=== PATIENT | female | born 2000 | race Caucasian/White ===

== ENCOUNTER 2021-08-02 22:48 | Outpatient (REF) | payer OTHER, SELFPAY ==
[2021-08-02 23:14] LABS: COVID-19 Test Negative (Negative)
[2021-08-02 23:23] LABS: Influenza A Negative (Negative); Influenza B2 Negative (Negative)
== END 2021-08-02 22:49 | disposition home or self-care (01) ==
LOC: HO.LAB 22:48
PROVIDERS: Visit Provider Internal Medicine
DX: Z20.822 Contact with and (suspected) exposure to COVID-19 (principal)
CPT/HCPCS: 87502; 87635

== ENCOUNTER 2022-03-19 18:15 | Outpatient (REF) | payer OTHER, SELFPAY ==
[2022-03-19 19:11] LABS: Influenza A PCR NEGATIVE (Negative); Influenza B PCR NEGATIVE (Negative); Resp Syncy Virus RNA Qual PCR NEGATIVE (Negative); SARS COV2 PCR INHOUSE POSITIVE (Negative)
== END 2022-03-19 18:16 | disposition home or self-care (01) ==
LOC: HO.LAB 18:15
PROVIDERS: Physician Assistant Medical; Visit Provider Internal Medicine
DX: Z20.822 Contact with and (suspected) exposure to COVID-19 (principal)
CPT/HCPCS: 0241U

== ENCOUNTER 2022-09-15 17:34 | Emergency (ER) | payer OTHER, MEDICAID, SELFPAY ==
--- NOTE | ~2022-09-15 | US_ITS ---
EXAMINATION: US THYROID CLINICAL INFORMATION: Left anterior neck pain and swelling. COMPARISON: None available. TECHNIQUE: Linear transducer grayscale and color Doppler examination with attention to the region of the thyroid. FINDINGS: SIZE: Measurements of the thyroid lobes and nodules are given in sagittal, anteroposterior and transverse dimensions respectively. Right Thyroid Lobe: 4.8 x 1.1 x 1.6 cm, volume 4.4 mL. Parenchyma: The gland echotexture is homogeneous. Thyroid vascularity is normal. Left Thyroid Lobe: 4.5 x 1.7 x 1.8 cm, volume 6.8 mL. Parenchyma: The gland echotexture is homogeneous. Thyroid vascularity is normal. Isthmus: 0.2 cm in maximum AP dimension. Estimated total number of nodules greater than or equal to 1 cm: 0. Computer Systems Software Architect nodules are described as follows: 1. Location: Left upper pole. Size: 0.9 x 0.6 x 0.6 cm, volume 0.2 mL. Nodule characteristics: Composition: Mixed cystic and solid (1). Echogenicity: Very hypoechoic (3). Shape: Not taller than wide (0). Margins: Lobulated (2). Echogenic Foci: None (0). ACR TI-RADS total points: 6 ACR TI-RADS category: 4 NODES: Left cervical lymph node measures 1.8 x 0.5 x 1.3 cm. US/US thyroid IMPRESSION: No further routine follow-up is needed. ACR TI-RADS RECOMMENDATION REFERENCE: Ultrasound-guided fine-needle aspiration, followup ultrasound, no further follow up. * TR1 (0 point) and TR2 (2 points): No FNA or follow up. * TR3 (3 points): FNA if more than or equal to 2.5 cm in maximum dimension, followup ultrasound in 1, 3 and 5 years if 1.5 to 2.4 cm in maximum dimension. * TR4 (4-6 points): FNA if more than or equal to 1.5 cm in maximum dimension, followup ultrasound in 1, 2, 3 and 5 years if 1 to 1.4 cm in maximum dimension. * TR5 (more than or equal to 7 points): FNA if more than or equal to 1 cm in maximum dimension, followup ultrasound every year for 5 years if 0.5 to 0.9 cm in maximum dimension. * TR3, TR4 or TR5 nodules that are below the size threshold for followup receive no follow up.
[2022-09-15 17:41] VITALS: BP 137/87; PULSE 91; RESP 18; TEMP 36.2; O2SAT 100; BMI 24.6
--- NOTE | 2022-09-15 17:51 | ED_ITS ---
HPI - General Adult General Chief complaint: General Medical Stated complaint: Neck pain Time Seen by Provider: 09/15/22 20:15 Source: patient, RN notes reviewed and old records reviewed Mode of arrival: ambulatory Limitations: no limitations History of Present Illness HPI narrative: 21-year-old female presents for evaluation of left-sided neck pain. Patient reports that 1/2 weeks ago she had ?a cold. ? She also a sore throat. She states that the symptoms improved over the last 3 days she has had worsening left-sided neck pain The pain radiates 3 ear pain Pain is worse with swallowing and worse with turning her head No current fevers or chills, no cough or shortness of breath The patient is concerned about her thyroid as her mother has thyroiditis Related Data Allergies Allergy/AdvReac Type Severity Reaction Status Date / Time No Known Allergies Allergy Verified 09/15/22 17:44 Review of Systems Constitutional: Constitutional: Denies chills and Denies fever(s) ENT: Denies neck mass, Reports neck pain, Reports sore throat and Denies throat swelling Cardiovascular: Cardiovascular: Denies dyspnea Respiratory: Respiratory: Denies cough and Denies dyspnea Gastrointestinal: Gastrointestinal: Denies abdominal pain, Denies nausea and Denies vomiting Musculoskeletal: Musculoskeletal: Reports neck pain Allergic/Immunologic: Allergic/Immunologic: Denies throat swelling PMFSH Social History Social History Advance Directives: No Advance Directives Information Provided: No Physical Exam ED Vital Signs: Vital Signs - 24 hr 09/15/22 17:41 Temperature 97.2 F Pulse Rate 91 Respiratory Rate 18 Blood Pressure 137/87 Pulse Oximetry 100 Oxygen Delivery Method Room Air BMI result Body Mass Index 24.6 Const General: healthy appearing, comfortable, no acute distress, alert and awake Nutritional Appearance: well nourished Orientation/consciousness: patient oriented x3 HENMT Head: Yes normocephalic and Yes atraumatic Throat: Yes posterior oropharynx normal Eyes Eyelids: Yes eyelids normal Conjunctivae: conjunctivae normal Sclerae: sclerae normal Corneas: corneas normal Pupils: Equal, round and reactive pupils present EOM: EOMs intact bilaterally Neck Other: No obvious anterior neck swelling, no palpable masses. No obvious abnormalities on palpation of thyroid Neck: Yes full ROM Resp Effort & Inspection: normal respiratory effort, able to speak in complete sentences and not labored Skin General skin exam: no rashes or lesions noted and elasticity normal Neuro General: patient oriented x3 Cranial nerves: Yes Equal, round and reactive pupils present and Yes Bilaterally intact EOM present Cognition (Neuro): normal cognition Extrem Other: Moving all extremities well without any obvious deformities Course Course Course Narrative: 21-year-old female presents for evaluation of left-sided neck pain. She reports that she had a cold about a week and a half ago. She reports getting better and then over last 3 days has had pain in the left anterior neck. The pain is worse with palpation, swelling, movement. She is concerned about her thyroiditis her mother has thyroid disease. Plan for labs including Monospot and TSH with reflex T4 as well as ultrasound soft tissue neck on the left Medical Decision Making Medical Decision Making MDM Narrative: Ultrasound of the thyroid does not show any evidence of abnormalities. There a 1.8 cm left anterior cervical chain lymph node present which is likely related t o the patient's viral illness from last week. No significant lab abnormalities including thyroid. These results were discussed with the patient. She will follow-up with PCP Differential Diagnosis Cervical lymphadenopathy Thyroiditis Pharyngitis Strep throat [place] Lab Data 09/15/22 17:52 09/15/22 17:52 Labs: Lab Results 09/15/22 09/15/22 09/15/22 Range/Units 17:52 17:52 17:52 WBC 11.6 H (4.8-10.8) X10*3/uL RBC 4.47 (4.20-5.50) X10*6/uL Hgb 13.0 (12.0-16.0) g/dl Hct 38.4 (37.0-47.0) % MCV 85.9 (80.0-98.0) fL MCH 29.1 (27.0-33.0) pg MCHC 33.9 (31.0-35.0) g/dl RDW 11.9 (11.0-16.0) % Plt Count 339 (160-400) X10*3/uL MPV 9.9 (9.4-12.3) fL Immature Gran % (Auto) 0.2 (0.0-0.4) % Neut % (Auto) 63.4 (45-73) % Lymph % (Auto) 27.9 (20-40) % [place] % (Auto) 7.1 (2-11) % Eos % (Auto) 1.0 (0-4) % Baso % (Auto) 0.4 (0-2) % Lymph # (Auto) 3.3 (1.2-4.9) X10*3/uL [place] # (Auto) 0.8 (0.1-1.2) X10*3/uL Eos # (Auto) 0.1 (0.0-0.4) X10*3/uL Baso # (Auto) 0.1 (0.0-0.2) X10*3/uL Abs Immat Gran (auto) 0.02 (0.00-0.03) X10*3/uL Absolute Neuts (auto) 7.4 (2.0-8.3) x10*3/uL Absolute Nucleated RBC 0.000 (0.0-0.012) X10*3/uL Nucleated RBC % (auto) 0.0 (0.0-0.2) /100WBC Sodium 140 (135-145) mmol/L Potassium 3.5 (3.3-5.1) mmol/L Chloride 105 (96-108) mmol/L Carbon Dioxide 25 (22-29) mmol/L Anion Gap 14 (12-20) BUN 12 (9-16) mg/dL Creatinine 0.68 (0.5-1.4) mg/dL Estim Creat Clear Calc 127.2 Estimated GFR > 60 Random Glucose 91 (60-115) mg/dL Calcium 10.0 (8.4-10.2) mg/dL TSH 1.71 (0.32-4.0) uIU/mL Monoscreen Negative (Negative) S. pyogenes GrpA CRISTIAN (Negative) 09/15/22 Range/Units 17:52 WBC (4.8-10.8) X10*3/uL RBC (4.20-5.50) X10*6/uL Hgb (12.0-16.0) g/dl Hct (37.0-47.0) % MCV (80.0-98.0) fL MCH (27.0-33.0) pg MCHC (31.0-35.0) g/dl RDW (11.0-16.0) % Plt Count (160-400) X10*3/uL MPV (9.4-12.3) fL Immature Gran % (Auto) (0.0-0.4) % Neut % (Auto) (45-73) % Lymph % (Auto) (20-40) % [place] % (Auto) (2-11) % Eos % (Auto) (0-4) % Baso % (Auto) (0-2) % Lymph # (Auto) (1.2-4.9) X10*3/uL [place] # (Auto) (0.1-1.2) X10*3/uL Eos # (Auto) (0.0-0.4) X10*3/uL Baso # (Auto) (0.0-0.2) X10*3/uL Abs Immat Gran (auto) (0.00-0.03) X10*3/uL Absolute Neuts (auto) (2.0-8.3) x10*3/uL Absolute Nucleated RBC (0.0-0.012) X10*3/uL Nucleated RBC % (auto) (0.0-0.2) /100WBC Sodium (135-145) mmol/L Potassium (3.3-5.1) mmol/L Chloride (96-108) mmol/L Carbon Dioxide (22-29) mmol/L Anion Gap (12-20) BUN (9-16) mg/dL Creatinine (0.5-1.4) mg/dL Estim Creat Clear Calc Estimated GFR Random Glucose (60-115) mg/dL Calcium (8.4-10.2) mg/dL TSH (0.32-4.0) uIU/mL Monoscreen (Negative) S. pyogenes GrpA CRISTIAN Negative (Negative) Discharge Plan Discharge Clinical Impression: Lymphadenopathy of left cervical region Patient Disposition: Home, Self-Care Instructions: Lymphadenopathy (ED) Additional Instructions: Your blood work did not show any concerning abnormalities. This included your thyroid studies You tested negative for strep throat and mononucleosis Your ultrasound showed a normal thyroid but did show a swollen lymph node on the left side of the neck This is likely from the viral illness you had 1/2 weeks ago It should go away on its own home but you may use ibuprofen or Tylenol for pain
[2022-09-15 17:56] LABS: MANUAL DIFF FLAG NO
[2022-09-15 18:02] LABS: Basophils Absolute Auto 0.1 X10*3/uL (0.0-0.2); Basophils Percent Auto 0.4 % (0-2); Eosinophils Absolute Auto 0.1 X10*3/uL (0.0-0.4); Hematocrit 38.4 % (37.0-47.0); Imm Gran Abs Auto 0.02 X10*3/uL (0.00-0.03); Imm Gran Pct Auto 0.2 % (0.0-0.4); Lymphocytes Absolute Auto 3.3 X10*3/uL (1.2-4.9); Lymphocytes Percent Auto 27.9 % (20-40); Mean Corpuscular HGB Conc 33.9 g/dl (31.0-35.0); Mean Corpuscular Hemoglobin 29.1 pg (27.0-33.0); Mean Corpuscular Volume 85.9 fL (80.0-98.0); Mean Platelet Volume 9.9 fL (9.4-12.3); Monocytes Absolute Auto 0.8 X10*3/uL (0.1-1.2); Monocytes Percent Auto 7.1 % (2-11); Neutrophils Absolute Auto 7.4 x10*3/uL (2.0-8.3); Neutrophils Percent Auto 63.4 % (45-73); Platelet Count 339 X10*3/uL (160-400); Red Blood Count 4.47 X10*6/uL (4.20-5.50); Red Cell Distribution Width 11.9 % (11.0-16.0); White Blood Count 11.6 X10*3/uL (4.8-10.8)
[2022-09-15 18:10] LABS: Monotest Negative (Negative)
[2022-09-15 18:17] LABS: Anion Gap 14 (12-20); Blood Urea Nitrogen 12 mg/dL (9-16); Carbon Dioxide 25 mmol/L (22-29); Chloride 105 mmol/L (96-108); Creatinine Clr Calc Pharmacy 127.2; Estimated Glomerular Filt Rate > 60; Glucose Random 91 mg/dL (60-115); Potassium 3.5 mmol/L (3.3-5.1); Sodium 140 mmol/L (135-145)
[2022-09-15 18:18] LABS: IDNOW Serial# 08D9AD1C; Strep A Nucleic Acid Negative (Negative)
[2022-09-15 18:32] LABS: TSH reflex Free T4 1.71 uIU/mL (0.32-4.0)
== END 2022-09-15 20:28 | disposition home or self-care (01) ==
PROVIDERS: Physician Assistant; Emergency Provider Emergency Medicine
DX: R59.1 Generalized enlarged lymph nodes (principal); M54.2 Cervicalgia; H92.03 Otalgia, bilateral; R13.10 Dysphagia, unspecified; Z79.899 Other long term (current) drug therapy
CPT/HCPCS: 36415; 76536; 80048; 84443; 85025; 86308; 87651; 99282; 99284

== ENCOUNTER 2023-08-23 10:30 | Emergency (ER) | payer OTHER, MEDICAID, SELFPAY ==
--- NOTE | ~2023-08-23 | CT_ITS ---
EXAMINATION: CT SOFT TISSUE NECK WITH CONTRAST CLINICAL INFORMATION: Left-sided lymphadenopathy. COMPARISON: Thyroid ultrasound 09/15/2022. TECHNIQUE: Following the intravenous administration of 60 mL of Omnipaque 350 intravenous contrast, helical imaging was performed in the axial plane with generation of coronal and sagittal reformatted images. This CT examination was performed using dose optimization techniques as appropriate, variously including the following: *Automated exposure control *Adjustment of mA and/or kV according to patient size (this includes techniques or standardized protocols for targeted exams where dose is matched to indication/reason for exam; i.e. extremities or head) *Use of iterative reconstruction technique DLP: 526 mGy-cm FINDINGS: There is an irregular area of low-attenuation in the left lobe of the thyroid gland, which almost completely replaces the parenchyma of the left lobe of the thyroid gland, extending cephalad to the level of the inferior aspect of the left lamina of the thyroid cartilage. It demonstrates mild irregular peripheral enhancement. This area measures 2.0 x 2.2 x 3.5 cm in oblique AP, transverse and craniocaudal dimensions. There is loss of the fat planes in the area, in the left carotid sheath extending into the hypopharynx with effacement of the left piriform sinus. The loss of fat extends into the superior mediastinum. There are small bilateral supraclavicular lymph nodes. The parotid glands are homogeneous in attenuation. The submandibular glands are normal. No contour abnormality or pathologic enhancement is seen within the oral cavity or pharyngeal mucosal space. The laryngeal structures are normal. The parapharyngeal fat is preserved. There is good opacification of the cervical carotid arteries and internal jugular veins bilaterally. No extra mucosal soft tissue mass or fluid collection is seen. No retropharyngeal fluid collection is seen. Residual thymic tissue is noted in the anterior mediastinum. Visualized upper lung howard are well-aerated. The mastoid air cells are well-aerated. There is a fluid level in the right sphenoid sinus and there is a small retention cyst in the mid right ethmoid air cells. The bilateral maxillary and right mandibular 3rd molar teeth are unerupted. The temporomandibular joints are normal. There are no acute osseous findings. The imaged portions of the brain parenchyma are unremarkable. CT/CT soft tissue neck w IV con IMPRESSION: 1. There is a large irregular area of low-attenuation in the left lobe of the thyroid gland, which almost completely replaces the parenchyma of the left lobe of the thyroid gland, extending cephalad to the level of the inferior aspect of the left lamina of the thyroid cartilage. There is loss of fat planes in the area, in the left carotid sheath, extending into the hypopharynx with effacement of the left piriform sinus and extending into the superior mediastinum. The findings are concerning for evolving thyroid abscess. There is no discrete lymphadenopathy. 2. This critical result was discussed with Elana HODGES by telephone on 08/23/2023 at 1:35 PM and it was ascertained that the content and urgency of the report was understood at the time of direct communication.
[2023-08-23 10:32] VITALS: BP 151/87; PULSE 98; RESP 18; TEMP 536.8; TEMP 998.2; O2SAT 100; BMI 25.1
--- NOTE | 2023-08-23 10:37 | ED.GENADULT ---
HPI - General Adult General Chief complaint: General Medical Stated complaint: High fever/Swollen lymph nodes Time Seen by Provider: 08/23/23 10:36 Source: patient and RN notes reviewed Mode of arrival: ambulatory Limitations: no limitations History of Present Illness ED Provider: Elana Webber PA-C HPI narrative: This is a 22-year-old female, with no known medical problems, who presents emergency department with complaints of left-sided neck swelling and pain and sore throat for the last week. Patient states that she developed a sore throat about 1 week ago. She states that she has had increased left-sided neck pain and swelling. She endorses fevers, and difficulty swallowing secondary pain. She has been taking ibuprofen without significant relief. She was seen by an urgent care several days ago and did not have any testing performed and was told to take ibuprofen. Patient reports no headaches, dizziness, shortness for breath, chest pain, abdominal pain, nausea, vomiting or diarrhea. No sick contacts. She states that her mother had thyroid nodules, and recently from pancreatic cancer. No other complaints or concerns at this time. MD complaint: Sore throat, neck swelling Onset (ago): week(s) Location: neck Radiation: non-radiation Quality: aching Relieving factors: none Exacerbating factors: none Associated symptoms: denies other symptoms Treatments prior to arrival: none Related Data Allergies Allergy/AdvReac Type Severity Reaction Status Date / Time No Known Allergies Allergy Verified 08/23/23 10:33 Review of Systems Review of Systems: Yes all other systems are reviewed and are negative Constitutional: Constitutional: Reports as per [facility] Past Medical History Attestation statement: The following information was validated with the patient. Social History Social History Advance Directives: No Advance Directives Information Provided: No Do you have a plan to hurt others: No Plan Physical Exam ED Vital Signs: Vital Signs - 24 hr 08/23/23 10:32 08/23/23 13:48 Temperature 998.2 F H 98.2 F Pulse Rate 98 Respiratory Rate 18 Blood Pressure 151/87 H Pulse Oximetry 100 Oxygen Delivery Method Room Air BMI result Body Mass Index 25.1 Const General: cooperative, comfortable and no acute distress Orientation/consciousness: patient oriented x3 Limitations: no limitations HENMT Other: No tonsillar hypertrophy or exudates. Uvula is midline. Slight erythema to the posterior pharynx, no exudates. Airway is widely patent. She is speaking in full sentences however pain with speaking. Head: Yes normal to inspection, Yes normocephalic and Yes atraumatic Ears: hearing grossly normal bilaterally General nose exam: Normal external nose present Face and sinus: Yes normal facial exam Eyes General: appearance normal, both eyes and all related structures Eyelids: Yes eyelids normal Conjunctivae: conjunctivae normal Sclerae: sclerae normal Pupils: Equal, round and reactive pupils present EOM: EOMs intact bilaterally Neck Other: Patient with significantly tender and edematous left anterior chain lymphadenopathy. This extends down just inferior lateral to the coracoid process, no posterior lymphadenopathy noted. No supraclavicular lymph nodes noted. no superficial erythema noted. Chest Chest palpation & inspection: normal inspection of the chest Resp Effort & Inspection: normal respiratory effort, able to speak in complete sentences, no grunting, not labored, no nasal flaring and no pursed lip breathing Auscultation: clear to auscultation bilaterally, no crackles, no rales, no rhonchi and no wheezes Cardio Rate: regular rate Rhythm: regular rhythm Heart sounds: S1 normal heart sound present and S2 normal heart sound present GI Inspection: Yes normal to inspection Skin General skin exam: no rashes or lesions noted Trauma: no lacerations or abrasions Wounds: no wounds Neuro General: patient oriented x3 and moves all extremities Cranial nerves: Yes Equal, round and reactive pupils present Extrem General: Yes normal to inspection Right upper extremity: normal to inspection Left upper extremity: normal to inspection Right lower extremity: normal to inspection Left lower extremity: normal to inspection Course Reevaluation(s) Reevaluation #1: 1300 - strep test returns, is positive, negative for mono, flu, COVID. Blood work significant for leukocytosis at 13.5k, chemistry revealing slight elevation T bili indirect bili at 1.1/0.6 respectively, ALT 44. TSH 0.56 1335 Call from [facility] reporting that patient has a large left thyroid abscess. I reviewed case with attending physician, Dr. Oswald, who recommends cefepime 2 g IV. Blood cultures and lactic also ordered. Patient needs transfer for ENT. I spoke to patient with boyfriend at bedside in regards to this finding. Pt understands and agrees for transfer. Pt remains to be stable, airway widely patent. Pt has had pain relief with toradol. Time: 13:35 Reevaluation #2: Spoke to the transfer line, [facility] is closed for ENT due to bed capacity. Will try [facility] for transfer Time: 13:54 Reevaluation #3: Spoke to [facility], they your currently at a level 5 capacity and is unable to take any transfers at this time. Will try [facility]. Time: 13:58 Additional Reevaluation(s): 1420 - spoke to [facility], they accept transfer of care for ED to ED transfer with ENT consult, Dr. Zuleta is the accepting physician. Patient remained stable, obtaining blood cultures, lactic, and starting cefepime 2 g. Patient has no airway compromise, this was reassured by Physical examination as well as radiologic image. Patient is agreeable to transfer. Will book [facility] transfer Medications Administered Discontinued Medications Generic Name Dose Route Start Last Admin Trade Name Freq PRN Reason Stop Dose Admin Dexamethasone Sodium Phosphate 10 mg 08/23/23 10:52 08/23/23 11:03 Dexamethasone Sod Phosphate 10 Mg/Ml Vial IVPUSH 08/23/23 10:53 10 mg ONCE ONE Administration Iohexol 100 ml 08/23/23 12:14 08/23/23 12:14 Iohexol 350 Mg/Ml 100 Ml Infus..Btl IV 08/23/23 12:15 60 ml ONCE ONE Administration Ketorolac Tromethamine 30 mg 08/23/23 10:52 08/23/23 11:43 Ketorolac Tromethamine 30 Mg/Ml Vial IVPUSH 08/23/23 10:53 30 mg ONCE ONE Administration Lorazepam 0.5 mg 08/23/23 11:08 08/23/23 11:19 Lorazepam 2 Mg/Ml Vial IVPUSH 08/23/23 11:09 0.5 mg STAT STA Administration Medical Decision Making Medical Decision Making MDM Narrative: This is a 22-year-old female, with no known medical problems, who presents emergency department with complaints of sore throat and left-sided neck pain x1 week. Patient reports that she started off as having a sore throat which has progressively become worse. She noticed several days ago that she has had increased left-sided neck swelling. She endorses difficulty swallowing however is still able to swallow liquids. She denies any sick contacts. Patient does have tenderness to palpation along the anterior neck specifically along the anterior cervical chain and just inferiolateral to the cricoid process. Given tenderness, I had patient evaluated by my attending physician, Dr. Oswald. Plan: Labs, viral swabs, TSH, mono screen, fluids, Toradol 30mg IV, Decadron 10 mg IV Differential Diagnosis Differential Diagnoses: The differential diagnosis associated with the presentation includes Strep pharyngitis, tonsillitis, abscess, thyroid nodule, STRAIGHT KNIFE CUTTER MACHINE, malignancy Admission/Observation Consideration of admission/observation: Escalation of care including admission/observation considered Patient requiring transfer of care given that we do not have ENT in house for further management of thyroid abscess Lab Data MDM Lab Attestation statement: I reviewed the patient's lab results. Slight leukocytosis at 13.5, with left shift. Chemistry with T bili of 1.1, direct bili 0.6, ALT slightly elevated at 44. TSH 0.56, viral swabs negative, patient positive for strep. 08/23/23 10:29 08/23/23 10:29 Labs: Lab Results 08/23/23 08/23/23 Range/Units 10:29 11:09 WBC 13.5 H (4.8-10.8) X10*3/uL RBC 4.29 (4.20-5.50) X10*6/uL Hgb 12.6 (12.0-16.0) g/dl Hct 36.1 L (37.0-47.0) % MCV 84.1 (80.0-98.0) fL MCH 29.4 (27.0-33.0) pg MCHC 34.9 (31.0-35.0) g/dl RDW 11.9 (11.0-16.0) % Plt Count 410 H (160-400) X10*3/uL MPV 9.8 (9.4-12.3) fL Immature Gran % (Auto) 0.4 (0.0-0.4) % Neut % (Auto) 79.8 H (45-73) % Lymph % (Auto) 9.8 L (20-40) % [place] % (Auto) 9.7 (2-11) % Eos % (Auto) 0.1 (0-4) % Baso % (Auto) 0.2 (0-2) % Lymph # (Auto) 1.3 (1.2-4.9) X10*3/uL [place] # (Auto) 1.3 H (0.1-1.2) X10*3/uL Eos # (Auto) 0.0 (0.0-0.4) X10*3/uL Baso # (Auto) 0.0 (0.0-0.2) X10*3/uL Abs Immat Gran (auto) 0.05 H (0.00-0.03) X10*3/uL Absolute Neuts (auto) 10.8 H (2.0-8.3) x10*3/uL Absolute Nucleated RBC 0.000 (0.0-0.012) X10*3/uL Nucleated RBC % (auto) 0.0 (0.0-0.2) /100WBC Hold Purple Top SEE NOTE Sodium 143 (135-145) mmol/L Potassium 3.4 (3.3-5.1) mmol/L Chloride 106 (96-108) mmol/L Carbon Dioxide 25 (22-29) mmol/L Anion Gap 15 (12-20) BUN 8 L (9-16) mg/dL Creatinine 0.70 (0.5-1.4) mg/dL Estim Creat Clear Calc 122.6 Estimated GFR > 60 Random Glucose 101 (60-115) mg/dL Calcium 9.7 (8.4-10.2) mg/dL Total Bilirubin 1.1 H (0.0-1.0) mg/dL Direct Bilirubin 0.6 H (0.0-0.5) mg/dL AST 31 (5-31) U/L ALT 44 H (0-31) U/L Alkaline Phosphatase 82 (39-117) U/L Total Protein 8.0 (6.5-8.0) g/dL Albumin 4.4 (3.5-5.0) g/dL TSH 0.56 (0.32-4.0) uIU/mL Beta HCG, Quant < 2 mIU/mL Monoscreen Negative (Negative) Influenza Type A (PCR) NEGATIVE (Negative) Influenza Type B (PCR) NEGATIVE (Negative) RSV RNA Qual (PCR) NEGATIVE (Negative) SARS-CoV-2 RNA (RT-PCR) NEGATIVE (Negative) S. pyogenes GrpA CRISTIAN Positive A (Negative) Independent Interpretation I performed an independent interpretation of an: CT Scan Interpretation: I reviewed the CT scan, also visualizing large irregular area of the left lobe of the thyroid Radiology Impression Discussion of test interpretation with radiology: I have reviewed the radiologist's reading. Radiologist Impression: FINDINGS: There is an irregular area of low-attenuation in the left lobe of the thyroid gland, which almost completely replaces the parenchyma of the left lobe of the thyroid gland, extending cephalad to the level of the inferior aspect of the left lamina of the thyroid cartilage. It demonstrates mild irregular peripheral enhancement. This area measures 2.0 x 2.2 x 3.5 cm in oblique AP, transverse and craniocaudal dimensions. There is loss of the fat planes in the area, in the left carotid sheath extending into the hypopharynx with effacement of the left piriform sinus. The loss of fat extends into the superior mediastinum. There are small bilateral supraclavicular lymph nodes. The parotid glands are homogeneous in attenuation. The submandibular glands are normal. No contour abnormality or pathologic enhancement is seen within the oral cavity or pharyngeal mucosal space. The laryngeal structures are normal. The parapharyngeal fat is preserved. There is good opacification of the cervical carotid arteries and internal jugular veins bilaterally. No extra mucosal soft tissue mass or fluid collection is seen. No retropharyngeal fluid collection is seen. Residual thymic tissue is noted in the anterior mediastinum. Visualized upper lung howard are well-aerated. The mastoid air cells are well-aerated. There is a fluid level in the right sphenoid sinus and there is a small retention cyst in the mid right ethmoid air cells. The bilateral maxillary and right mandibular 3rd molar teeth are unerupted. The temporomandibular joints are normal. There are no acute osseous findings. The imaged portions of the brain parenchyma are unremarkable. CT/CT soft tissue neck w IV con IMPRESSION: 1. There is a large irregular area of low-attenuation in the left lobe of the thyroid gland, which almost completely replaces the parenchyma of the left lobe of the thyroid gland, extending cephalad to the level of the inferior aspect of the left lamina of the thyroid cartilage. There is loss of fat planes in the area, in the left carotid sheath, extending into the hypopharynx with effacement of the left piriform sinus and extending into the superior mediastinum. The findings are concerning for evolving thyroid abscess. There is no discrete lymphadenopathy. 2. This critical result was discussed with Elana HODGES by telephone on 08/23/2023 at 1:35 PM and it was ascertained that the content and urgency of the report was understood at the time of direct communication. Dictated By: ERROL WALTER MD Prescription Management I considered prescription management with: Pain Medication and Antibiotic Critical Care Time Critical Care Time Critical Care Time: Yes Total Critical Care Time: 60 Attestation: I have personally provided critical care time exclusive of time spent on separately billable procedures. Time includes review of lab data, radiology results, discussion with consultants, and monitoring for potential decompensation. Intervention performed as documented. Discharge Plan Discharge Clinical Impression: Abscess, thyroid Patient Disposition: Still a Patient Print Language: Senegalese
[2023-08-23 10:59] LABS: MANUAL DIFF FLAG NO
[2023-08-23] MEDS: dexAMETHasone sod phosphate 10 MG/ML VIAL IVPUSH (11:03)
[2023-08-23 11:08] LABS: Basophils Percent Auto 0.2 % (0-2); Eosinophils Percent Auto 0.1 % (0-4); Hematocrit 36.1 % (37.0-47.0); Hemoglobin 12.6 g/dl (12.0-16.0); Imm Gran Abs Auto 0.05 X10*3/uL (0.00-0.03); Imm Gran Pct Auto 0.4 % (0.0-0.4); Lymphocytes Absolute Auto 1.3 X10*3/uL (1.2-4.9); Lymphocytes Percent Auto 9.8 % (20-40); Mean Corpuscular HGB Conc 34.9 g/dl (31.0-35.0); Mean Corpuscular Hemoglobin 29.4 pg (27.0-33.0); Mean Corpuscular Volume 84.1 fL (80.0-98.0); Mean Platelet Volume 9.8 fL (9.4-12.3); Monocytes Absolute Auto 1.3 X10*3/uL (0.1-1.2); Monocytes Percent Auto 9.7 % (2-11); Neutrophils Absolute Auto 10.8 x10*3/uL (2.0-8.3); Neutrophils Percent Auto 79.8 % (45-73); Platelet Count 410 X10*3/uL (160-400); Red Blood Count 4.29 X10*6/uL (4.20-5.50); Red Cell Distribution Width 11.9 % (11.0-16.0); White Blood Count 13.5 X10*3/uL (4.8-10.8)
[2023-08-23] MEDS: LORazepam 2 MG/ML VIAL 0.5 MG IVPUSH (11:19)
[2023-08-23 11:36] LABS: IDNOW Serial# 08D9AD1C; Strep A Nucleic Acid Positive (Negative)
[2023-08-23 11:37] LABS: Alanine Aminotransferase 44 U/L (0-31); Albumin Level 4.4 g/dL (3.5-5.0); Alkaline Phosphatase 82 U/L (39-117); Anion Gap 15 (12-20); Aspartate Amino Transferase 31 U/L (5-31); Bilirubin Direct 0.6 mg/dL (0.0-0.5); Bilirubin Total 1.1 mg/dL (0.0-1.0); Blood Urea Nitrogen 8 mg/dL (9-16); Calcium 9.7 mg/dL (8.4-10.2); Carbon Dioxide 25 mmol/L (22-29); Chloride 106 mmol/L (96-108); Creatinine Clr Calc Pharmacy 122.6; Estimated Glomerular Filt Rate > 60; Glucose Random 101 mg/dL (60-115); HCG Quantitative < 2 mIU/mL; Potassium 3.4 mmol/L (3.3-5.1); Sodium 143 mmol/L (135-145)
[2023-08-23 11:40] LABS: Monotest Negative (Negative)
[2023-08-23] MEDS: Ketorolac Tromethamine 30 MG/ML VIAL IVPUSH (11:43)
[2023-08-23 11:47] LABS: TSH reflex Free T4 0.56 uIU/mL (0.32-4.0)
[2023-08-23 11:53] LABS: Influenza A PCR NEGATIVE (Negative); Influenza B PCR NEGATIVE (Negative); Resp Syncy Virus RNA Qual PCR NEGATIVE (Negative); SARS COV2 PCR INHOUSE NEGATIVE (Negative)
[2023-08-23] MEDS: iohexoL 350 MG/ML 100 ML INFUS..BTL IV (12:14)
[2023-08-23 13:48] VITALS: TEMP 36.8
[2023-08-23] MEDS: cefEPime HCl 2 GM in 0.9 % Sodium Chloride 50 ML IV (14:33)
[2023-08-23] MEDS: Throat Lozenge, Medicated LOZENGE 1 LOZENGE MUCOUS MEM (14:33)
[2023-08-23 14:49] LABS: Lactic Acid 0.7 mmol/L (0.5-2.0)
[2023-08-23 15:01] VITALS: BP 118/60; PULSE 95; RESP 16; TEMP 36.9; O2SAT 98
--- NOTE | 2023-08-23 15:02 | MHC.EDTECH ---
THIS PCT ASSUMED CARE OF PATIENT AT 1445 ,VITALS TAKEN ,PATIENT WAITING TO BE TRANSFER TO [facility] .
--- NOTE | 2023-08-23 17:12 | PC.NURSE ---
late entry provider tiger'ed this RN to hold off on cough drop, on phone with radiologist, question of a thyroid mass/abscess requiring higher level of care for patient. Patient sent to [facility] via [facility]. Verbal report given to EMS by Elana HODGES. Patient able to ambulate independently to stretcher for transport.
[2023-08-23 17:17] VITALS: BP 118/60; PULSE 95; RESP 16; TEMP 36.9; O2SAT 98
== END 2023-08-23 15:20 | disposition short-term general hospital (02) ==
PROVIDERS: Physician Assistant Medical; Emergency Provider Student in an Organized Health Care Education/Training Program
DX: E06.0 Acute thyroiditis (principal); Z03.818 Encounter for observation for suspected exposure to other biological agents ruled out
CPT/HCPCS: 0241U; 36415; 70491; 80048; 80076; 83605; 84443; 84702; 85025; 86308; 87040; 87651; 96374; 96375; 99284; 99285; J0692; J1100; J1885; J2060; Q9967

== ENCOUNTER 2024-09-15 11:24 | Emergency (ER) | payer OTHER, SELFPAY ==
--- NOTE | ~2024-09-15 | XR_ITS ---
EXAMINATION: XR CHEST CLINICAL INFORMATION: cough, wheezing COMPARISON: None available. TECHNIQUE: 2 views of the chest were obtained. FINDINGS: No significant abnormality is noted involving the heart, lungs, mediastinum, bony thorax or soft tissues. XR/XR chest 2V IMPRESSION: No acute disease. Electronically signed by: Cedrick Peraza MD 09/15/2024 12:07 PM EDT
[2024-09-15 11:54] VITALS: BP 136/91; PULSE 109; RESP 20; TEMP 36.8; O2SAT 100; BMI 22.0
--- NOTE | 2024-09-15 11:54 | ED_ITS ---
HPI - URI/Sore Throat General Chief Complaint: General Medical Stated Complaint: Pneumonia? Time Seen by Provider: 09/15/24 11:29 Source: patient Mode of arrival: ambulatory Limitations: no limitations History of Present Illness ED Provider: Mariusz Nunez PA-C HPI Narrative: 23 yo female with history of thyroid abscess 2/2 Strep 1 year ago (treated at [facility]) who presents to the ER for evaluation of cough and wheezing for the last 1 week. She reports flu-like illness 1 week ago with chest congestion and small amount of phlegm production. Unknown if she had a fever. She reports ongoing right sided wheeze last night and this morning. She reports LE muscle aches as well. No chest pain or SOB. No history of asthma. MD elicited complaint: cough and other (wheezing) Onset (ago): week(s) Consistency: intermittent Able to tolerate fluids by mouth: Yes Exacerbating factors: nothing Relieving factors: nothing Associated symptoms: cough Treatments prior to arrival: none Related Data Previous Rx's ?Medication ?Instructions ?Recorded ondansetron 4 mg disintegrating 4 mg PO Q8H PRN nausea and 08/28/23 tablet vomiting #14 tabs albuterol sulfate 90 mcg/actuation 2 puff inhalation Q 4-6H PRN 09/15/24 aerosol inhaler (Ventolin HFA) shortness of breath or wheezing #6.7 grams Allergies Allergy/AdvReac Type Severity Reaction Status Date / Time No Known Allergies Allergy Verified 09/15/24 11:57 Review of Systems 2 Review of Systems: Yes all other systems are reviewed and are negative Physical Exam 2 Vital Signs: Vital Signs: Last Vital Signs Temp 98.3 F 09/15/24 11:54 Pulse 109 H 09/15/24 11:54 Resp 20 09/15/24 11:54 BP 136/91 H 09/15/24 11:54 Pulse Ox 100 09/15/24 11:54 O2 Del Method Room Air 09/15/24 11:54 BMI result Body Mass Index 22.0 Appearance: Alert. Oriented X3. No acute distress. Head: normocephalic, atraumatic. Eyes: normal external inspection ENT: normal external inspection Neck: Normal inspection. no swelling anteriorly CVS: Normal heart rate and rhythm. Respiratory: No respiratory distress. Breath sounds normal. Skin: Skin warm and dry. Normal skin color. Normal skin turgor. No rashes. Extremities: No lower extremity edema. No joint swelling. Neuro/psych: steady gait, gross normal nonfocal Medical Decision Making Medical Decision Making [facility] Narrative: 23 yo female presenting with chest congestion x1 week, right sided wheeze. VS with mild tachycardia, no fever. nontoxic appearing. CXR is normal without focal infiltrate or effusion. labs are reassuring with normal WBC, CRP and CK most likely viral URI w/ cough, symptomatic and supportive care recommended stable for d/c home Differential Diagnosis Differential Diagnoses: The differential diagnosis associated with the presentation includes strep, covid, flu, rsv, other viral syndrome, bronchitis, pneumonia, low suspicion for PE Lab Data [facility] Lab Attestation statement: I reviewed the patient's lab results. no anemia, no leukocytosis, no metabolic derangement 09/15/24 12:04 09/15/24 12:04 Labs: Lab Results 09/15/24 Range/Units 12:04 WBC 7.6 (4.8-10.8) X10*3/uL RBC 4.42 (4.20-5.50) X10*6/uL Hgb 13.1 (12.0-16.0) g/dl Hct 37.2 (37.0-47.0) % MCV 84.2 (80.0-98.0) fL MCH 29.6 (27.0-33.0) pg MCHC 35.2 H (31.0-35.0) g/dl RDW 11.9 (11.0-16.0) % Plt Count 342 (160-400) X10*3/uL MPV 9.7 (9.4-12.3) fL Immature Gran % (Auto) 0.3 (0.0-0.4) % Neut % (Auto) 64.8 (45-73) % Lymph % (Auto) 25.9 (20-40) % Ross % (Auto) 7.8 (2-11) % Eos % (Auto) 0.7 (0-4) % Baso % (Auto) 0.5 (0-2) % Lymph # (Auto) 2.0 (1.2-4.9) X10*3/uL Ross # (Auto) 0.6 (0.1-1.2) X10*3/uL Eos # (Auto) 0.1 (0.0-0.4) X10*3/uL Baso # (Auto) 0.0 (0.0-0.2) X10*3/uL Abs Immat Gran (auto) 0.02 (0.00-0.03) X10*3/uL Absolute Neuts (auto) 4.9 (2.0-8.3) x10*3/uL Absolute Nucleated RBC 0.000 (0.0-0.012) X10*3/uL Nucleated RBC % (auto) 0.0 (0.0-0.2) /100WBC Sodium 136 (135-145) mmol/L Potassium 3.7 (3.3-5.1) mmol/L Chloride 105 (96-108) mmol/L Carbon Dioxide 24 (22-29) mmol/L Anion Gap 11 L (12-20) BUN 18 H (9-16) mg/dL Creatinine 0.62 (0.5-1.4) mg/dL Estim Creat Clear Calc 142.3 Estimated GFR > 60 Random Glucose 94 (60-115) mg/dL Calcium 9.4 (8.4-10.2) mg/dL Magnesium 1.8 (1.6-2.6) mg/dL Total Bilirubin 0.3 (0.0-1.0) mg/dL Direct Bilirubin 0.1 (0.0-0.5) mg/dL AST 18 (5-31) U/L ALT 14 (0-31) U/L Alkaline Phosphatase 52 (39-117) U/L Total Creatine Kinase 66 (26-140) U/L C-Reactive Protein < 0.10 (< or = 0.50) mg/dL Total Protein 7.3 (6.5-8.0) g/dL Albumin 5.0 (3.5-5.0) g/dL Independent Interpretation I performed an independent interpretation of an: Plain X-Ray Interpretation: clear without infiltrate to suggest PNA Radiology Impression Discussion of test interpretation with radiology: I have reviewed the radiologist's reading. External Record Review External record reviewed: Prior outpatient labs Prescription Management I considered prescription management with: Antibiotic Critical Care Time Critical Care Time Critical Care Time: No Discharge Plan Discharge Clinical Impression: Viral URI with cough Patient Disposition: Home, Self-Care Instructions: Viral Syndrome (ED) Additional Instructions: cxr was normal labs were normal use the inhaler as needed for wheezing or bronchospasm follow up with your PCP If you develop new or worsening symptoms call 911 or come back to the ER for further evaluation. Prescriptions: New albuterol sulfate [Ventolin HFA] 90 mcg/actuation HFA aerosol inhaler 2 puff inhalation Q4-6H PRN (Reason: shortness of breath or wheezing) Qty: 6.7 0RF No Action ondansetron 4 mg tablet,disintegrating 4 mg PO Q8H PRN (Reason: nausea and vomiting) Qty: 14 0RF Print Language: [place]
[2024-09-15 12:10] LABS: MANUAL DIFF FLAG NO
[2024-09-15 12:11] LABS: Basophils Percent Auto 0.5 % (0-2); Eosinophils Absolute Auto 0.1 X10*3/uL (0.0-0.4); Eosinophils Percent Auto 0.7 % (0-4); Hematocrit 37.2 % (37.0-47.0); Hemoglobin 13.1 g/dl (12.0-16.0); Imm Gran Abs Auto 0.02 X10*3/uL (0.00-0.03); Imm Gran Pct Auto 0.3 % (0.0-0.4); Lymphocytes Percent Auto 25.9 % (20-40); Mean Corpuscular HGB Conc 35.2 g/dl (31.0-35.0); Mean Corpuscular Hemoglobin 29.6 pg (27.0-33.0); Mean Corpuscular Volume 84.2 fL (80.0-98.0); Mean Platelet Volume 9.7 fL (9.4-12.3); Monocytes Absolute Auto 0.6 X10*3/uL (0.1-1.2); Monocytes Percent Auto 7.8 % (2-11); Neutrophils Absolute Auto 4.9 x10*3/uL (2.0-8.3); Neutrophils Percent Auto 64.8 % (45-73); Platelet Count 342 X10*3/uL (160-400); Red Blood Count 4.42 X10*6/uL (4.20-5.50); Red Cell Distribution Width 11.9 % (11.0-16.0); White Blood Count 7.6 X10*3/uL (4.8-10.8)
[2024-09-15 12:42] LABS: Alanine Aminotransferase 14 U/L (0-31); Alkaline Phosphatase 52 U/L (39-117); Anion Gap 11 (12-20); Aspartate Amino Transferase 18 U/L (5-31); Bilirubin Direct 0.1 mg/dL (0.0-0.5); Bilirubin Total 0.3 mg/dL (0.0-1.0); Blood Urea Nitrogen 18 mg/dL (9-16); C Reactive Protein < 0.10 mg/dL (< or = 0.50); Calcium 9.4 mg/dL (8.4-10.2); Carbon Dioxide 24 mmol/L (22-29); Chloride 105 mmol/L (96-108); Creatinine Clr Calc Pharmacy 142.3; Estimated Glomerular Filt Rate > 60; Glucose Random 94 mg/dL (60-115); Magnesium 1.8 mg/dL (1.6-2.6); Potassium 3.7 mmol/L (3.3-5.1); Sodium 136 mmol/L (135-145); Total Protein 7.3 g/dL (6.5-8.0)
[2024-09-15 12:56] LABS: TSH reflex Free T4 3.73 uIU/mL (0.32-4.0)
--- OUTSIDE RECORDS SUMMARY | 2024-09-15 13:20 | XMS_ITS | Clinical Summary ---
Author Organization [facility] Address [address] [place] [address] Care Team Providers Care Senior Core Java Developer Name Role Phone System, Provider Not In Primary Care Provider Un available Allergies No known active allergies Medications buPROPion (WELLBUTRIN XL) 300 MG 24 hr tablet Take 1 tablet (300 mg total) by mouth daily. 07/19/2023 Active Active Problems Problem Noted Date Diagnosed Date Abscess of thyroid 08/23/2023 Social History Tobacco Use Types Packs/Day Years Used Date Smoking Tobacco: Never Assessed [facility] Utilities Answer Date Recorded In the past 12 months has [employer], gas, oil, or water [employer] threatened to shut off services in your home? No 08/25/2023 AUDIT-C Answer Date Recorded Q1: How often do you have a drink containing alcohol? Never 08/23/2023 Q2: How many drinks containi ng alcohol do you have on a typical day when you are drinking? Patient does not drink Q3: How often do you have si x or more drinks on one occasion? Never 08/23/2023 Overall Financial Resource Strain (CARDIA) Answe r Date Recorded How hard is it for you to pa y for the very basics like food, housing, medical care, and heating? Not very hard 08/25/2023 Hunger Vital Sign Answer Date Recorded Within the past 12 months, y ou worried that your food would run out before you got the money to buy more. Never true 08/25/19 24 Within the past 12 months, t he food you bought just didn't last and you didn't have money to get more. Never true 08/25/2023 PRAPARE - Transportation Answer Date Re corded In the past 12 months, has l ack of transportation kept you from medical appointments or from getting medications? No 07/28 In the past 12 months, has l ack of transportation kept you from meetings, work, or from getting things needed for daily living? No 08/25/2023 Housing Stability Vital Sign Answer [place] e Recorded In the last 12 months, was t here a time when you were not able to pay the mortgage or rent on time? No 08/25/2023 In the last 12 months, how many places have you lived? 1 08/25/2023 In the last 12 months, was t here a time when you did not have a steady place to sleep or slept in a long term (including now)? No 08/25/2023 Comments Unknown Sex and Gender Information Value Date Recorded Sex Assigned at Female 08/23/2023 4:07 PM EDT Legal Sex Female 6:59 PM EST Gender Identity Female 08/23/2023 4:07 PM EDT Sexual Orientation Heterosexual (straight) 08/22 4:07 PM EDT Last Filed Vital Signs Vital Sign Reading Time Taken Comments Blood Pressure 115/68 08/28/2023 7:30 AM EDT Pulse 71 08/28/2023 7:30 AM EDT Temperature 36.7 C (98.1 F) 08/28/2023 7:30 AM EDT Respiratory Rate 18 08/28/2023 7:30 AM EDT Oxygen Saturation 100% 08/28/2023 7:30 AM EDT Inhaled Oxygen Concentration - - Weight 72.8 kg (160 lb 9.6 oz) 08/24/2023 12:00 AM EDT Height 170.2 cm (5' 7 ) 08/23/2023 11:33 PM EDT Body Mass Index 25.15 08/23/2023 11:33 PM EDT Plan of Treatment Health Maintenance Due Date Last Done Comments Hepatitis C Virus Screening 2000 HIV Screening 2013 HPV Vaccines (1 - 3-dose series) 10/31/2015 DTaP/Tdap/Td Vaccines (1 - Tdap) 10/31/2019 Hepatitis B Vaccines (1 of 3 - 19+ 3-dose series) 10/31/2019 Pap Smear (Ages 21-65) 2021 COVID-19 Vaccine (3 - 2023-2 5 season) 2023 07/17/2020, 06/26/2020 Influenza Vaccine 10/27/2024 Pneumococcal Vaccine: Pediatric (0-5 Years) and At-Risk Patients (6 to 49 Years) Aged Out No longer eligible b ased on patient's age to complete this topic Insurance [facility] Advance Directives * Full Code (Latest Code Status on File) Date Activated Date Inactivated Comments 08/23/2023 9:06 PM Care Teams Senior Core Java Developer Relationship Specialty Start Date End Date System, Provider Not In PCP - General 08/23/23
== END 2024-09-15 13:20 | disposition home or self-care (01) ==
LOC: HO.ED 13:17
PROVIDERS: Physician Assistant; Emergency Provider Emergency Medicine
DX: J06.9 Acute upper respiratory infection, unspecified (principal); R05.9 Cough, unspecified; Z79.899 Other long term (current) drug therapy
CPT/HCPCS: 36415; 71046; 80048; 80076; 82550; 83735; 84443; 85025; 86140; 99281; 99283

== ENCOUNTER → 2024-09-15 11:29 | Outpatient (BNV) | payer OTHER, MEDICAID, SELFPAY | PROVIDERS: Emergency Provider Emergency Medicine; Visit Provider Radiology Diagnostic Radiology | DX: R06.2 Wheezing (principal) | CPT/HCPCS: 71046 ==